=== PATIENT | female | born 1990 ===

== ENCOUNTER 2021-01-08 15:44 | Inpatient (IN) | payer OTHER, BC ==
[~2021-01-08] VITALS: Ht 157.5 cm; Wt 86.0 kg
[2021-01-08 16:15] VITALS: BP 99/65
[2021-01-08] MEDS ORDERED: CELE20TA PO (16:24)
[2021-01-08] MEDS ORDERED: CLAR5TAB11 PO (16:24)
[2021-01-08] MEDS ORDERED: PRENTAB9 PO (16:24)
[2021-01-08] MEDS ORDERED: [UNRECOGNIZED DRUG - CODE] PO (16:24)
[2021-01-08 17:33] VITALS: BP 106/73
[2021-01-08] MEDS ORDERED: OXYTOCIN DRIP 30 UNITS in IV 1 EA IV PRN (18:00)
[2021-01-08] MEDS ORDERED: AZITHROMYCIN INJ 500 MG, VIAL MATE ADAPTER 1 EACH in NS 250 ML IV ONE (18:00)
[2021-01-08] MEDS ORDERED: LACTATED RINGER'S 1000 ML IV ONE (18:00)
[2021-01-08] MEDS ORDERED: METHYLERGONOVINE MALEATE 0.2 MG/ML VIAL (J2210) IM PRN (18:00)
[2021-01-08] MEDS ORDERED: OXYTOCIN INJ 10 UNITS/ML VIAL (J2590) IV PRN (18:00)
[2021-01-08] MEDS ORDERED: BUPIVACAINE HCL 0.25% 10ML VIAL SC SCH (18:00)
[2021-01-08] MEDS ORDERED: ceFAZolin SOD 2 GM in IV 1 EA IV ONE (18:00)
[2021-01-08] MEDS ORDERED: BICITRA 30ML SOLN UDC PO ONE (18:00)
[2021-01-08] MEDS ORDERED: ACETAMINOPHEN 650 MG SUPP PR SCH (18:00)
[2021-01-08 18:27] VITALS: BP 105/65
[2021-01-08 19:30] LABS: HEMATOCRIT 31.2 % (36.0-47.0); MEAN CORPUSCULAR HGB CONC 32.1 g/dl (32.0-36.5); MEAN CORPUSCULAR VOLUME 84.1 fl (80.0-96.0); PLATELET COUNT, AUTOMATED 204 10^3/uL (150-450); RED BLOOD COUNT 3.71 10^6/uL (4.00-5.40); WHITE BLOOD COUNT 9.1 10^3/uL (4.0-10.0)
--- NOTE | 2021-01-08 19:31 | HPEPDOC ---
Obstetrical History & Physical General Date of Admission Jan 08, 2021 at 17:59 Primary Care Physician: Familia Loo MD History of Present Illness 01/08/21 30 yo AT 37.5 WEEKS LATE ENTRY FOR CARE TODAY TRANSFER IN . NST REACTIVE AND CONTRACTIONS MODERATE INTENSITY NO VAGINAL LOSS NO VAGINAL BLEEDING . FOR REPEAT CS Chief Complaint: Contractions, term Information Provided By: Patient Age: 30 : 3 Term: 1 Pre-term: 1 Abortions: 0 Livin Care Care: Good Care Number of Visits: 8 Dating Final EDC: Jan 24, 2021 Final EDC for Daily Update: Jan 24, 2021 Final EDC by: LMP (UNCERTAIN) 1st Trimester Date: Jan 08, 2021 (UNCERTAIN) Estimated Date of Confinement: Jan 24, 2021 EGA at Admission: 37.5 Antepartum Course Diagnos(e)s TERM CONTRACTIONS HX 2 PREVIOUS CS Height (inches): 62 Pre- weight (lbs.): 170 Admission Weight (lbs.): 189 Change in Weight (lbs.): 19 Past Medical History Past Obstetrical History #1: Past Obstetrical History: Multigravida Date of Delivery: Mar 19, 2018 Gestation: 36 Type of Delivery: Ceserean section Sex of : Male Weight of (grams): 2890 Complications: Yes (ARREST OF DESCENT ASYNCLYTISM) Past Obstetrical History #2: Past Obstetrical History: Multigravida Date of Delivery: Mar 30, 2019 Gestation: 41 Type of Delivery: Ceserean section Sex of Infant: Female Weight of Infant (grams): 3742.1 Complications: No Past Medical History Surgical History: Denies/None Family History Significant Family History: No pertinent family hx Social History Marital Status: Family situation: Spouse/partner home Psychosocial History: Anxiety * Smoker: non-smoker Alcohol: Denies Drugs: denies Abuse Violence Screening Have you been hit/kicked/slapp: No Have you been sexually assault: No Imunizations Tdap status: current Influenza Status: current Allergies Coded Allergies: Sulfa (Sulfonamide Antibiotics) (Verified Allergy, Unknown, 01/08/21) TAPE (Verified Allergy, Unknown, 01/08/21) Medications Scheduled Citalopram Hydrobromide (Celexa) 20 Mg Tablet, 1 TAB PO DAILY Cranberry Conc/C/Bacill Coag ([facility]vs Cranberry 450 mg Tablet) 1 Each Tablet, 1 TAB PO QAM Loratadine (Claritin) 5 Mg Tab.rapdis, 1 TAB PO DAILY for allergy symptoms No.137/Iron/Folic Acd ( Vitamin Tablet) 1 Each Tablet, 1 TAB PO DAILY Physical Examination Physical Examination GENERAL: Alert and oriented times three. BREAST: . ABDOMEN: Gravid and non-tender to touch. FETUS: Is vertex (VTX) by sterile vaginal examination (SVE), fetus is vertex (VTX) by [place]. HEART RATE: Regular rate and rhythm. LUNGS: Clear to auscultation (CTA). EXTREMITIES: No edema. No clonus. Deep tendon reflexes (DTRs) + . Other physical findings LOW CS SCAR NON TENDER TATTOOS CHEST CLEAR HEART NORMAL NO MURMUR NO EDEMA , NO RASHES LESIONS OR PURITIES. SF HEIGHT 38 CM VERTEX BOWEL SOUNDS ACTIVE . NO ARTHRALGIA MYALGIA NO SOB . NO URGENCY NO FREQUENCY Pertinent Laboratoy Data Blood Type: O+ RBC Antibody Screen: Negative HIV: Negative Hepatitis B: Negative Hepatitis C: Negative Rapid Plasma Reagin: Nonreactive Rubella: Immune Varicella: Nonreactive Chlamydia/Gonorrhea: Negative Group B Streptococcus: Negative Cystic Fibrosis: Negative Anatomy Ultrasound Placenta Location: Anterior Normal Anatomy: Yes Placenta Previa: No Steroid Therapy Steroid Therapy: No Vaginal Examination Dilation: 2cm Effacement: 50% Station: -3 Cervical Consistency: Soft Cervical Position: Posterior Presentation: Cephalic presentation Assessment Variability: Moderate Accelerations: Positive Decelerations: None Tocometer Contractions: Yes Frequency: regular, every 1-3 min. Duration: less than 60 seconds Strength: palpated as moderate Assessment/Plan Assessment 30 year-old (G3 para (P)2 at 37.5 weeks by Presents to Labor and Delivery (L&D) ACTIVE LABOR AT TERM Plan Admit and orient. Floor Waxer and consent. Diet: NPO . Group B Streptococcus (GBS) [negative]. Labs and intravenous (IV) per unit protocol. Counseled on Pitocin POST Lactated Ringers (LR): Bolus 1000 mL, then at 125 mL/hr. Anticipate REPEAT CS . C-S as appropriate. Labor and Delivery Counseling REVIEWED RISK OF TOLAC NEW ADMISSION NO HISTORY OF INTEGRITY OF CS SCAR NO NOTES FOR DELIVERY WAS COUNSELLED ELSEWHERE THAT IF WANTS TOLAC AFTER 2 CS NEEDS TO GO TO LEVEL 3 CENTER. NO IN LABOR SAFER TO REPEAT CS WAS CONCERNED ABOUT LOW BP . WE HAVE MEDICATION FOR THAT . REVIEWED HEMORRHAGE INFECTION PERFORATION REOPERATION REMOTE BLOOD TRANSFUSION REMOTE HYSTERECTOMY FOR UNCONTROLLED BLEEDING NICU ADMISSION REMOTE EXPRESSED UNDERSTANDING . SIGNED CONSENT Familia Loo MD Jan 08, 2021 19:21
[2021-01-08] MEDS ORDERED: ACETAMINOPHEN 650 MG SUPP PR ONE (20:55)
[2021-01-08] MEDS: LR 1,000 ML IV SCH (20:56)
[2021-01-08] MEDS ORDERED: BUPIVACAINE HCL 0.25% 10ML VIAL SC ONE (21:00)
[2021-01-08 22:21] VITALS: BP 134/78
[2021-01-08] MEDS ORDERED: diphenhydrAMINE 50MG/ML VIAL (J1200) IV PRN (22:35)
[2021-01-08] MEDS ORDERED: METOCLOPRAMIDE INJ 10MG/2ML VIAL (J2765 PER 1) IV PRN (22:35)
[2021-01-08] MEDS ORDERED: NALOXONE INJ 0.4MG/1ML VIAL (J2310 PER 1MG) IV PRN ×2 (22:35)
[2021-01-08] MEDS ORDERED: NALBUPHINE HCL 10 MG/ML AMP (J2300) IV PRN (22:35)
[2021-01-08] MEDS ORDERED: ONDANSETRON 4MG/2ML VIAL IV PRN (22:35)
[2021-01-08] MEDS ORDERED: OXYTOCIN INJ 10 UNITS/ML VIAL (J2590) As Ordered ONE (23:22)
[2021-01-08] MEDS ORDERED: MORPHINE PRES-FREE INJ 10 MG/10 ML VIAL (J2274) As Ordered ONE (23:22)
[2021-01-08] MEDS ORDERED: ePHEDrine SULFATE 25 MG/5 ML(5MG/ML) SYRINGE As Ordered ONE ×2 (23:23→23:30)
[2021-01-09] VITALS (16 sets, daily range): BP systolic 103–139; BP diastolic 56–73
[2021-01-09] MEDS ORDERED: METHYLERGONOVINE MALEATE 0.2 MG TAB PO PRN (00:20)
[2021-01-09] MEDS ORDERED: ACETAMINOPHEN TAB 650MG DOSE (2X325MG) PO PRN (00:20)
[2021-01-09] MEDS ORDERED: ANUSOL HC CREAM 30GM TOP PRN (00:20)
[2021-01-09] MEDS ORDERED: RHOGAM 300 MCG (1500 IU) INJ (J2790) IM SCH (00:20)
[2021-01-09] MEDS ORDERED: DOCUSATE SODIUM 100MG CAPSULE PO PRN (00:20)
[2021-01-09] MEDS ORDERED: MOM 30ML SUSPENSION UDC PO PRN (00:20)
[2021-01-09] MEDS ORDERED: MEASLES,MUMPS,RUBELLA VACCINE INJ (MMR-II) (90707) SC SCH (00:20)
[2021-01-09] MEDS ORDERED: ACETAMINOPHEN 500 MG TAB PO PRN (00:20)
[2021-01-09] MEDS ORDERED: ACETAMINOPHEN 650 MG SUPP PR PRN (00:20)
[2021-01-09] MEDS ORDERED: OXYTOCIN DRIP 30 UNITS in IV 1 EA IV ONE ×4 (00:20)
[2021-01-09] MEDS ORDERED: SIMETHICONE 80MG CHEW TAB PO PRN (00:20)
[2021-01-09 00:26] LABS: CORD GAS ABE V -2.8; CORD GAS HCO3 V 24.4 MEQ/L; CORD GAS O2 SAT V 68.2 %; CORD GAS PCO2 V 52.1 mmHg; CORD GAS PH V 7.289 UNITS; CORD GAS PO2 V 28.9 mmHg; CORD GAS SBC V 21.5 MEQ/L
[2021-01-09 00:27] LABS: CORD GAS HCO3 A 25.8 MEQ/L; CORD GAS O2 SAT A 27.3 %; CORD GAS PCO2 A 63.8 mmHg; CORD GAS PH A 7.225 UNITS; CORD GAS PO2 A 15.7 mmHg; CORD GAS SBC A 20.4 MEQ/L; CORD GAS TCO2 A 27.8 MEQ/L
[2021-01-09] MEDS ORDERED: LR 1,000 ML IV SCH (00:30)
[2021-01-09] MEDS ORDERED: MEPERIDINE INJ 25 MG/ML VIAL (J2175) IV PRN (00:30)
[2021-01-09] MEDS ORDERED: PERCOCET 5MG/325MG TAB PO PRN (00:30)
[2021-01-09] MEDS ORDERED: fentaNYL 100 MCG/2 ML INJECTION (J3010) IV PRN (00:30)
[2021-01-09] MEDS ORDERED: KETOROLAC 30 MG/ML 1ML VIAL IV PRN (00:30)
[2021-01-09] MEDS ORDERED: METOCLOPRAMIDE INJ 10MG/2ML VIAL (J2765 PER 1) IV PRN (00:30)
[2021-01-09] MEDS ORDERED: ONDANSETRON 4MG/2ML VIAL IV PRN (00:30)
[2021-01-09] MEDS: KETOROLAC 30 MG/ML 1ML VIAL IV SCH ×4 (03:04→20:26)
[2021-01-09] MEDS: PRENATAL VITAMINS CHEWABLE TABLET PO SCH (09:12)
[2021-01-09] MEDS: CitaloPRAM (CeleXA) 20 MG TAB PO SCH (09:13)
[2021-01-09] MEDS: LR 1,000 ML IV SCH ×2 (09:14→09:15)
[2021-01-09] MEDS: PERCOCET 5MG/325MG TAB PO PRN (23:33)
[2021-01-10 02:40] VITALS: BP 120/74
[2021-01-10] MEDS ORDERED: IBUPROFEN 600MG TAB PO PRN (04:30)
[2021-01-10 06:24] VITALS: BP 111/67
[2021-01-10] MEDS ORDERED: PERCOCET PO (07:14)
[2021-01-10] MEDS ORDERED: PERCOCET 5MG/325MG TAB PO PRN ×2 (07:15)
[2021-01-10] MEDS ORDERED: IBUP-1022 PO (07:15)
--- NOTE | 2021-01-10 07:21 | DS.PDOC ---
Discharge Summary General Date of Admission Jan 08, 2021 at 17:59 Date of Discharge Jan 09, 2021 Discharge Summary HOSPITAL COURSE: Ms. Burnett is a 30 yo G3 now P3 who underwent an uncomplicated RLTCS on 08Jan2021 after being admitted for active labor and a history of two prior c sections. Her course was unremarkable. On her day of discharge she met all appropriate discharge criteria. She was ambulating, voiding, tolerating a regular diet, had minimal lochia, and her pain was well controlled with PO pain medications. DISCHARGE MEDICATIONS: Please see below. ALLERGIES: Please see below. PHYSICAL EXAMINATION ON DISCHARGE: VITAL SIGNS: Please see below. GENERAL: AAOX3, NAD ABDOMINAL EXAMINATION: Fundus firm at U-2. No fundal tenderness. Optifoam dressing in place over incision. Well appearing with minimal strikethrough. Minimal tenderness to palpation. EXTREMITIES: No edema PSYCHIATRIC EXAMINATION: Affect appropriate LABORATORY DATA: Please see below. ACTIVITY: Pelvic rest for 6 weeks. No heavy lifting for 6 weeks DIET: Regular DISCHARGE PLAN: Discharge home DISPOSITION: Discharge home on 10Jan2021 DISCHARGE INSTRUCTIONS: 1. Nothing in the vagina for 6 weeks 2. No heavy lifting for 6 weeks ITEMS TO FOLLOWUP ON ON OUTPATIENT: 1. two week incision check in the office 2. milk pickup driver meds DISCHARGE CONDITION: Stable. TIME SPENT ON DISCHARGE: Greater than 20 minutes. Maribel Lam, Vital Signs/I&Os Vital Signs Date Time Temp Pulse Resp B/P (MAP) Pulse Ox O2 Delivery O2 Flow Rate FiO2 01/10/21 06:24 96.6 69 16 111/67 (82) 97 Room Air I&O- Last 24 Hours up to 6 AM 01/10/21 05:59 Output Total 1900 ml Balance -1900 ml Discharge Medications Scheduled Citalopram Hydrobromide (Celexa) 20 Mg Tablet, 1 TAB PO DAILY, (Reported) Cranberry Conc/C/Bacill Coag (Cvs Cranberry 450 mg Tablet) 1 Each Tablet, 1 TAB PO QAM, (Reported) Loratadine (Claritin) 5 Mg Tab.rapdis, 1 TAB PO DAILY for allergy symptoms, (Reported) No.137/Iron/Folic Acd ( Vitamin Tablet) 1 Each Tablet, 1 TAB PO DAILY, (Reported) Scheduled PRN Ibuprofen (Ibuprofen) 600 Mg Tablet, 600 MG PO Q6HP PRN for PAIN LEVEL 1-5 Oxycodone/Acetaminophen (Oxycodone-Acetaminophen 5-325) 1 Each Tablet, 1 TAB PO Q4H PRN for MILD/MODERATE PAIN (PS 1-7) Allergies Coded Allergies: Sulfa (Sulfonamide Antibiotics) (Verified Allergy, Unknown, 01/08/21) TAPE (Verified Allergy, Unknown, 01/08/21) MARIBEL LAM DO Jan 10, 2021 07:21
[2021-01-10] MEDS: CitaloPRAM (CeleXA) 20 MG TAB PO SCH (07:49)
[2021-01-10] MEDS: PRENATAL VITAMINS CHEWABLE TABLET PO SCH (07:49)
[2021-01-10] MEDS: PERCOCET 5MG/325MG TAB PO PRN ×2 (07:50→12:53)
[2021-01-10 08:21] LABS: HEMOGLOBIN 9.4 g/dl (12.0-15.5); MEAN CORPUSCULAR HEMOGLOBIN 27.1 pg (27.0-33.0); MEAN CORPUSCULAR HGB CONC 31.3 g/dl (32.0-36.5); MEAN CORPUSCULAR VOLUME 86.5 fl (80.0-96.0); PLATELET COUNT, AUTOMATED 172 10^3/uL (150-450); RED BLOOD COUNT 3.47 10^6/uL (4.00-5.40); WHITE BLOOD COUNT 6.6 10^3/uL (4.0-10.0)
--- NOTE | 2021-01-10 20:53 | RO ---
OPERATIVE NOTE DATE OF OPERATION: 01/08/2021 PREOPERATIVE DIAGNOSES: Late entry to care, contractions, previous section x2. POSTOPERATIVE DIAGNOSES: Previous section x2, uterine window, cord x2 and active labor at term. OPERATION PROPOSED: Repeat section. OPERATION PERFORMED: Repeat section. SURGEON: Dr. Familia Loo COVERING MACHINE OPERATOR HELPER: Dr. Mcintyre for extraction, retraction, visualization without which the procedure could not be completed. ANESTHESIA: Spinal plus local anesthetic for intraperitoneal procedures. ESTIMATED BLOOD LOSS: 400 cc DESCRIPTION OF PROCEDURE: After adequate anesthesia, patient was prepped and draped in the supine position, Sultana catheter in the bladder draining clear urine. Acetaminophen suppository 1300 mg per rectum, sequentials in place, and antibiotic preoperatively. A Pfannenstiel incision was made to the two previous Pfannenstiel incisions, passing through abdominal layers, securing hemostasis. Opening the peritoneal cavity, we noticed a very thinned lower uterine segment, in fact we did see a window throughout the entire area and we could see black hair through that. AROM was done draining clear liquid. We delivered a live male , weighing 7 pounds 7 ounces (3370 grams) with the cord tight x2 around the neck, Apgars of 9 and 9 in 1 and 5 minutes respectively. Arterial pH 7.22, base excess -3, venous pH 7.28 and base excess -2.8. The placenta delivered manually thereafter and reevaluation of intrauterine architecture was swept out, no membranes or tissue was left. The lower segment was oversewn in the usual fashion with a running stitch for the first layer and imbricating the second layer. There was minimal amount of tissue for reperitonealization. Both ovaries and tubes appear to be normal. We then removed the Mobius that was placed in prior. With that done, all the blood clots in the gutters were removed and then the abdomen was closed; a running stitch for the peritoneum, same for the fascia, interrupted subcu Dexon to the skin, Marcaine 0.25% 10 mL to the incisional site and a Medipore dressing. The uterus remained contracted well down under Pitocin. The patient was sent to recovery in good condition.
--- NOTE | 2021-01-13 21:56 | IPN ---
PROGRESS NOTE DATE: 01/09/2021 SUBJECTIVE: This patient requested circumcision of her male infant. After discussing risks and benefits of circumcision, the medical, the nonmedical indications, the penile block and aftercare, expressed understanding of penile block, aftercare and bleeding, signed the consent form. All questions were answered, 20-minute discussion. We await clearance by the bean snapper.
== END 2021-01-10 13:55 | disposition home or self-care (01) | DRG 773 ==
LOC: M LDO 15:44 → M LDI 17:59 → M OBS 01-09 02:21
PROVIDERS: ADMIT Obstetrics & Gynecology; ATTEND Obstetrics & Gynecology
PROC: 10D00Z1 Extraction of Products of Conception, Low, Open Approach (ICD-10-PCS; principal; 2021-01-08)
DX: O34.211 Maternal care for low transverse scar from previous cesarean delivery (principal); Z3A.37 37 weeks gestation of pregnancy; O69.1XX0 Labor and delivery complicated by cord around neck, with compression, not applicable or unspecified; Z37.0 Single live birth; O94 Sequelae of complication of pregnancy, childbirth, and the puerperium

== ENCOUNTER 2021-01-17 02:49 | Emergency (ER) | payer OTHER, BC ==
[~2021-01-17] VITALS: Ht 157.5 cm; Wt 81.6 kg
[~2021-01-17 02:49] MED LIST: CELE20TA PO; CLAR5TAB11 PO; IBUP-1022 PO; PERCOCET PO; PRENTAB9 PO; [UNRECOGNIZED DRUG - CODE] PO
[2021-01-17 02:58] VITALS: BP 135/83
[2021-01-17] MEDS ORDERED: ACET-683 PO (02:59)
== END 2021-01-17 05:37 | disposition left against medical advice (07) ==
LOC: M ED 02:49
DX: Z53.21 Procedure and treatment not carried out due to patient leaving prior to being seen by health care provider (principal)

== ENCOUNTER 2021-01-17 05:49 | Outpatient (CLI) | payer OTHER, BC ==
[~2021-01-17] VITALS: Ht 157.5 cm; Wt 81.6 kg
[~2021-01-17 05:49] MED LIST changes: +ACET-683 PO
[2021-01-17 06:03] VITALS: BP 134/63
[2021-01-17] MEDS ORDERED: ACETAMINOPHEN 500 MG TAB PO ONE (06:20)
--- NOTE | 2021-01-17 06:33 | IPNPDOC ---
Subjective Date Seen The patient was seen on 01/17/21. Subjective Chief Complaint/HPI Pt is a 30yo postop day #9 from on 01/08/21 presents to OB triage secondary to severe headache, nausea and swelling. No HTN complications during . Patient initially presented to the ER via ambulance at 0300 however after several hours in the waiting room, contacted OB emergency pager reporting her BEY as an 8/10 with vision changes, unrelieved with tylenol. Pt instructed to present to OB triage for immediate evaluation. On further questioning on arrival, pt states BEY initially began yesterday afternoon around 1500. She had taken tylenol and oxycodone that she had remaining from her postop meds, which she states provided some improvement. She does report a history of migraines, which are more localized and states this headache is more diffuse. She does not currently have any vision changes. States nausea is mild and denies RUQ pain or dyspnea. General: Reports: Normal Appetite; Denies: Chills, Night Sweats, Fatigue, Malaise Constitutional: Denies: Chills, Fever, Night Sweats Eyes: Reports: Vision change ENT: Reports: Head Aches Cardiovascular: Denies: Chest Pain, Palpitations, Orthopnea, Paroxysmal Noc. Dyspnea, Lt Headedness Gastrointestinal: Reports: Nausea; Denies: Vomiting, Abdominal Pain Genitourinary: Denies: Dysuria, Frequency, Incontinence, Retention Neurological: Denies: Weakness, Numbness, Change in speech, Confusion Psych: Reports: Mood Normal; Denies: Depression, Memory Issues Objective Physical Examination General Exam: Positive: Alert, No Acute Distress Eye Exam: Positive: PERRLA, Conjunctiva & lids normal, EOMI; Negative: Sclera icteric Chest Exam: Positive: Normal air movement Heart Exam: Positive: Rate Normal Extremity Exam: Positive: Edema (+2 bilateral LE edema. No erythema or tenderness) Neuro Exam: Positive: Normal Gait, Normal Speech, Cranial Nerves 3-12 NL, Reflexes 2+ Psych Exam: Positive: Mental status NL, Mood NL, Oriented x 3 Assessment /Plan Assessment 30yo postop day #9 from uncomplicated repeat section presents with BEY, increased swelling and elevated BP (per patient) BP normotensive in triage. CBC/CMP obtained and within normal limits. BEY improving with tylenol. Will D/c patient home, return precautions given. Follow up as scheduled in clinic. Plan/VTE VTE Prophylaxis Ordered?: No VTE Exclusion Mechanical Proph: Other (triage only) VS, I&O, 24H, Fishbone Vital Signs/I&O Vital Signs Date Time Temp Pulse Resp B/P (MAP) Pulse Ox O2 Delivery O2 Flow Rate FiO2 01/17/21 06:03 97.3 57 18 134/63 (86) Laboratory Data CBC/BMP Laboratory Tests 01/17/21 06:33 BETO OTT M.D. Jan 17, 2021 06:33
[2021-01-17 06:50] LABS: HEMATOCRIT 32.7 % (36.0-47.0); HEMOGLOBIN 10.5 g/dl (12.0-15.5); MEAN CORPUSCULAR HEMOGLOBIN 27.1 pg (27.0-33.0); MEAN CORPUSCULAR HGB CONC 32.1 g/dl (32.0-36.5); MEAN CORPUSCULAR VOLUME 84.5 fl (80.0-96.0); PLATELET COUNT, AUTOMATED 295 10^3/uL (150-450); RED BLOOD COUNT 3.87 10^6/uL (4.00-5.40); WHITE BLOOD COUNT 5.3 10^3/uL (4.0-10.0)
[2021-01-17 07:13] LABS: ALBUMIN 2.7 GM/DL (3.2-5.2); ALT/SGPT 24 U/L (12-78); BILIRUBIN,TOTAL 0.2 MG/DL (0.2-1.0); BLOOD UREA NITROGEN 12 MG/DL (7-18); CALCIUM LEVEL 8.6 MG/DL (8.5-10.1); CARBON DIOXIDE LEVEL 28 MEQ/L (21-32); CHLORIDE LEVEL 106 MEQ/L (98-107); CREATININE FOR GFR 0.83 MG/DL (0.55-1.30); GLOMERULAR FILTRATION RATE > 60.0 (>60); GLUCOSE, FASTING 87 MG/DL (70-100); POTASSIUM SERUM 4.3 MEQ/L (3.5-5.1); SODIUM LEVEL 140 MEQ/L (136-145); TOTAL PROTEIN 6.5 GM/DL (6.4-8.2)
== END 2021-01-17 07:30 | disposition home or self-care (01) ==
LOC: M LDO 05:49
PROVIDERS: ATTEND Obstetrics & Gynecology
DX: O90.81 Anemia of the puerperium (principal); R51.9 Headache, unspecified; O34.211 Maternal care for low transverse scar from previous cesarean delivery; Z88.2 Allergy status to sulfonamides; Z91.040 Latex allergy status
CPT/HCPCS: 36415; 80053; 85027; G0378